=== PATIENT | male | born 1940 | race Caucasian/White ===

== ENCOUNTER 2017-11-21 05:19 | Day surgery (SDC) | payer OTHER ==
[~2017-11-21] VITALS: Ht 175.3 cm; Wt 82.6 kg
[~2017-11-21 05:19] MED LIST: COUMADIN4 MG PO; CRESTOR20 MG PO; JANTOVEN6 MG; PEPCID20 MG PO; PREDNISONE20 MG PO; VERAPAMIL HCL240 MG PO
[2017-11-21 05:59] VITALS: BP 149/86
[2017-11-21 06:03] LABS: PTT 28.2 SEC (25-37)
[2017-11-21 11:30] VITALS: BP 149/79
[2017-11-21] MEDS ORDERED: NORCO 5/3251 TABLET PO (11:36)
== END 2017-11-21 11:47 | disposition home or self-care (01) ==
LOC: SDC 05:19
PROVIDERS: Surgery
DX: K40.91 Unilateral inguinal hernia, without obstruction or gangrene, recurrent (principal); I48.91 Unspecified atrial fibrillation; Z79.01 Long term (current) use of anticoagulants; E78.5 Hyperlipidemia, unspecified; G62.9 Polyneuropathy, unspecified; H91.90 Unspecified hearing loss, unspecified ear; L40.9 Psoriasis, unspecified; Z98.890 Other specified postprocedural states; Z80.0 Family history of malignant neoplasm of digestive organs
CPT/HCPCS: 85610; 85730; C1781; J0131; J0690; J2405; J3010